=== PATIENT | female | born 1945 | race Caucasian/White ===

== ENCOUNTER 2023-01-01 18:36 | Emergency (ER) | payer MEDICARE, OTHER, SELFPAY ==
--- NOTE | 2023-01-01 18:39 | ED.UPPEXIN ---
HPI - Extremity Injury (Upper) General Chief Complaint: Wound/Laceration <Antonia Peguero NP - Last Filed: 01/01/23 18:44> Stated Complaint: left hand pointer finger laceration <Antonia Peguero NP - Last Filed: 01/01/23 18:44> Time Seen by Provider: 01/01/23 20:34 <Antonia Peguero NP - Last Filed: 01/01/23 18:44> Source: patient <FÁTIMA Ott - Last Filed: 01/01/23 21:01> Mode of arrival: ambulatory <FÁTIMA Ott - Last Filed: 01/01/23 21:01> Limitations: no limitations <FÁTIMA Ott - Last Filed: 01/01/23 21:01> History of Present Illness HPI narrative: This is a 77-year-old female presenting to the emergency department with concerns of laceration to left index finger, patient was attempting to cut open a host to measure its diameter and accidentally cut her finger with a knife. Patient reports it was initially bleeding. Patient unsure of tetanus status. Denies numbness and tingling as well as pain. <FÁTIMA Ott Last Filed: 01/01/23 21:01> Related Data Allergies/Adverse Reactions: Allergies Allergy/AdvReac Type Severity Reaction Status Date / Time Penicillins Allergy Intermediate Unknown Verified 01/01/23 18:40 [id number] Reductase Allergy Intermediate Unknown Verified 01/01/23 18:40 Inhibitor <Antonia Peguero NP - Last Filed: 01/01/23 18:44> Review of Systems Review of Systems: Constitutional : No Fever, No Chills, Cardiovascular : No Chest Pain, No SOB Respiratory : No Dyspnea Gastrointestinal : No abdominal pain Musculoskeletal : No Joint Swelling Skin : No rash, positive skin laceration Neuro : No Weakness, No Numbness Psych : No SI/HI <FÁTIMA Ott - Last Filed: 01/01/23 21:01> Yes all other systems are reviewed and are negative <FÁTIMA Ott Last Filed: 01/01/23 21:01> [facility] Past Medical History Attestation statement: The following information was validated with the patient. <FÁTIMA Ott - Last Filed: 01/01/23 21:01> Source: old records reviewed and nursing notes reviewed <FÁTIMA Ott - Last Filed: 01/01/23 21:01> Social History Social History: Social History Advance Directives: No Advance Directives Information Provided: No <Antonia Peguero NP - Last Filed: 01/01/23 18:44> Physical Exam Vital Signs: Vital Signs: Last Vital Signs Temp 98.2 F 01/01/23 18:40 Pulse 68 01/01/23 18:40 Resp 18 01/01/23 18:40 BP 182/75 H 01/01/23 18:40 Pulse Ox 99 01/01/23 18:40 O2 Del Method Room Air 01/01/23 18:40 BMI result Body Mass Index 20.4 <Antonia Peguero NP - Last Filed: 01/01/23 18:44> Vital Signs: Last Vital Signs Temp 98.2 F 01/01/23 18:40 Pulse 68 01/01/23 18:40 Resp 18 01/01/23 18:40 BP 182/75 H 01/01/23 18:40 Pulse Ox 99 01/01/23 18:40 O2 Del Method Room Air 01/01/23 18:40 BMI result Body Mass Index 20.4 vss <FÁTIMA Ott - Last Filed: 01/01/23 21:01> Appearance: Alert.? Oriented X3.? No acute distress.? Head: Normocephalic, atraumatic, no step-offs or deformities Eyes: Pupils equal, round and reactive to light.? ENT: Pharynx normal.? Neck: Normal inspection.? Neck supple.? CVS: Normal heart rate and rhythm.? Pulses normal.? Respiratory: No respiratory distress.? Breath sounds normal.? Abdomen: Soft and nontender.? Skin: Skin warm and dry.? Normal skin color.? Normal skin turgor.?+ 3 cm superficial laceration to left index finger, full range of motion to all fingers. 2+ radial pulses equal and b/l. No wrist drop. Extremities: No lower extremity edema.? No calf ttp. 5/5 strength to bilateral upper and lower extremities Neuro: Oriented X 3.? No motor deficit.? No sensory deficit. CN 2-12 intact <FÁTIMA Ott - Last Filed: 01/01/23 21:01> Course Course Course Narrative: This is a rapid medical exam. Deferred additional HPI, ROS, PE to primary provider. 77 yo female with medical history of hip replacements, HTN, HLD. depression, anxiety, right hand dominant here with laceration to left index finger after cutting open a hose with a knife. Over the dorsal aspect of left index finger there is a 3-4 cm laceration with FROM of the digit Tetanus status unknown Will give tetanus, defer closure to primary provider. <Antonia Peguero NP - Last Filed: 01/01/23 18:44> Reevaluation(s) Reevaluation #1: Area was closed with Dermabond. Patient to be discharged home. Educated patient on diagnosis and treatment plan, answered all question, patient verbalizes understanding. At this time patient will be discharged home, advised to return with new or worsening symptoms. Educated on worrisome signs and symptoms and when to return. At this time I feel comfortable discharge home. <FÁTIMA Ott - Last Filed: 01/01/23 21:01> Time: 21:00 <FÁTIMA Ott - Last Filed: 01/01/23 21:01> Medications Administered Discontinued Medications Generic Name Dose Route Start Last Admin Trade Name Freq PRN Reason Stop Dose Admin Diphtheria/Tetanus/Acell Pertussis 0.5 ml 01/01/23 18:44 01/01/23 19:56 Diphth,Pertus(Acell),Tet Adult 0.5 Ml Syringe IM 01/01/23 18:45 0.5 ml .ONCE ONE Administration <Antonia Peguero NP - Last Filed: 01/01/23 18:44> Medications Administered Discontinued Medications Generic Name Dose Route Start Last Admin Trade Name Freq PRN Reason Stop Dose Admin Diphtheria/Tetanus/Acell Pertussis 0.5 ml 01/01/23 18:44 01/01/23 19:56 Diphth,Pertus(Acell),Tet Adult 0.5 Ml Syringe IM 01/01/23 18:45 0.5 ml .ONCE ONE Administration <FÁTIMA Ott - Last Filed: 01/01/23 21:01> Medical Decision Making Medical Decision Making MDM Narrative: 77-year-old female presents with accidental laceration to left index finger. Unclear tetanus status Physical exam significant for + 3 cm superficial laceration to left index finger, full range of motion to all fingers. 2+ radial pulses equal and b/l. No wrist drop. Area will be cleaned well. Will repair with Dermabond. No need for imaging, patient has full range of motion, neurovascular status intact. Low suspicion for fractures, dislocation. Likely simple laceration. No signs of foreign body <FÁTIMA Ott - Last Filed: 01/01/23 21:01> Differential Diagnosis Differential Diagnoses: The differential diagnosis associated with the presentation includes <FÁTIMA Ott Last Filed: 01/01/23 21:01> Low suspicion for fractures, dislocation. Likely simple laceration. No signs of foreign body <FÁTIMA Ott - Last Filed: 01/01/23 21:01> Admission/Observation Consideration of admission/observation: Escalation of care including admission/observation considered <FÁTIMA Ott - Last Filed: 01/01/23 21:01> Core Measures AMI core measures followed: Yes <FÁTIMA Ott - Last Filed: 01/01/23 21:01> Measure exclusions: not indicated <FÁTIMA Ott Last Filed: 01/01/23 21:01> Critical Care Time Critical Care Time Critical Care Time: No <FÁTIMA Ott - Last Filed: 01/01/23 21:01> Discharge Plan Discharge Clinical Impression: Laceration <nAtonia Peguero NP - Last Filed: 01/01/23 18:44> Patient Disposition: Home, Self-Care <Antonia Peguero NP - Last Filed: 01/01/23 18:44> Additional Instructions: Take your medications as prescribed. If you were prescribed antibiotics today, it is important that you take your medication to their entirety, do not skip any doses, do not finish them early. Follow-up with your primary care provider this week. Return to the emergency department with new or worsening symptoms. Such as fevers, chills, chest pain, shortness of breath, nausea, vomiting, dizziness, headache, vision changes, lethargy In case of emergency call 911 Please let the glue fall off on its own. I hope you feel better! <Antonia Peguero NP - Last Filed: 01/01/23 18:44> Referrals: Physician,Unknown J [Primary Care Provider] - 2 days <Antonia Peguero NP - Last Filed: 01/01/23 18:44> Stand Alone Forms: Work/School Release <Antonia Peguero NP - Last Filed: 01/01/23 18:44>
[2023-01-01 18:40] VITALS: BP 182/75; PULSE 68; RESP 18; TEMP 36.8; O2SAT 99; BMI 20.4
[2023-01-01] MEDS: Diphth,Pertus(ACell),Tet Adult 0.5 ML SYRINGE IM (19:56)
--- NOTE | 2023-01-01 19:59 | PC.NURSE ---
Tdap vaccine administered per pt.'s OCT.
== END 2023-01-01 21:58 | disposition home or self-care (01) ==
PROVIDERS: Emergency Provider Emergency Medicine
DX: S61.211A Laceration without foreign body of left index finger without damage to nail, initial encounter (principal); S60.411A Abrasion of left index finger, initial encounter; W26.9XXA Contact with unspecified sharp object(s), initial encounter; Y93.9 Activity, unspecified; Y92.9 Unspecified place or not applicable; Y99.9 Unspecified external cause status; Z79.899 Other long term (current) drug therapy; Z23 Encounter for immunization
CPT/HCPCS: 12002; 90471; 90715; 99282; 99284